=== PATIENT | male | born 1990 | race Caucasian/White ===

== ENCOUNTER 2023-12-11 18:46 | Emergency (ER) | payer OTHER, SELFPAY ==
[2023-12-11 18:52] VITALS: BP 120/88; BMI 25.9
[2023-12-11 20:14] LABS: % Basophils 0.3 % (0-2); % Eosinophils 1.8 % (0-6); % Immature Granulocytes 0.3 % (0-0.5); % Lymphocytes 26.2 % (20.5-51.1); % Monocytes 11.1 % (1.7-9.3); % Neutrophils 60.3 % (42.2-75.2); Absolute Eosinophils 0.1 10^3/uL (0-0.7); Absolute Lymphocytes 1.6 10^3/uL (1.2-3.4); Absolute Monocytes 0.7 10^3/uL (0.1-0.6); Absolute Neutrophils 3.7 10^3/uL (1.4-6.5); Hematocrit 40.9 % (39.0-52.0); Hemoglobin 14.7 g/dL (13.0-18.0); Mean Corp Hgb Conc. 35.9 g/dL (33.0-37.0); Mean Corpuscular Hgb 31.2 pg (27.0-31.0); Mean Corpuscular Volume 86.8 fL (80.0-94.0); Mean Platelet Volume 11.4 fL (7.4-10.4); Nucleated Red Blood Cells % 0 % (-); Platelet Count 133 10^3/uL (130-400); Red Blood Cell Count 4.71 10^6/uL (4.70-6.10); Red Cell Dist. Width 11.9 % (11.5-14.5); White Blood Cell Count 6.1 10^3/uL (4.8-10.8)
[2023-12-11 20:36] LABS: ALT (SGPT) 44 U/L (0-50); AST (SGOT) 40 U/L (17-59); Albumin 4.4 g/dl (3.5-5.0); Alkaline Phosphatase 83 U/L (38-126); Blood Urea Nitrogen 23 mg/dl (9-20); Calcium 8.9 mg/dl (8.4-10.2); Carbon Dioxide 25 mmol/L (22-30); Estimated Creatinine Clearance 101 ml/min; Glucose 80 mg/dl (70-99); Total Protein 7.2 g/dl (6.3-8.2); Troponin I < 0.012 ng/ml; eGFR > 60.00
[2023-12-11 20:44] LABS: Chloride 101 mmol/L (98-107); Potassium 4.1 mmol/L (3.5-5.1); Sodium 135 mmol/L (135-145)
--- NOTE | 2023-12-11 21:00 | ED.GENMED ---
History of Present Illness
<KAITLYNN Hancock - Last Filed: 12/12/23 01:06>
General
Chief Complaint: Chest Pain
Source: patient
Exam Limitations: none
Time Seen by Provider: 12/11/23 20:46
Travel History
Have you had any contact with someone who has COVID-19?: No
Do you have any symptoms of coronavirus? Fever > 100 degrees, chills, cough, shortness of breath, sore throat, loss of taste or smell, muscle aches, or headache?: No
History of Present Illness
History of Present Illness:
This is a 33 year old male that comes in with c/o chest pain. Sate that he was driving home when he got this extreme lightheadedness spell. Sates that he started to feel anxious and this would come and go. Then he started with chest pain and SOB.
States that he thought he better come and get checked. Denies any fever, chills, abd pain, nausea, vomiting, diarrhea, headache, urinary burning.
Past History
<KAITLYNN Hancock - Last Filed: 12/12/23 01:06>
Past History
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
ED Past Surgical History: Cardiac (Open heart surgery ) and Orthopedic (Clavicle fracture Left)
Social History
Tobacco: Non-smoker
Alcohol: Occasional
Drug: None
Personal:
Living: with family
Employment: Employed
Family History
Family History: Other (Noncontributory)
Review of Systems
<KAITLYNN Hancock - Last Filed: 12/12/23 01:06>
Review of Systems
All Other Systems: ROS reviewed and negative except as documented in HPI and ROS
Constitutional: Reports no symptoms; Denies fever or chills
EENT: Reports no symptoms
Respiratory: Reports trouble breathing; Denies cough
Cardiac: Reports chest pain
ABD/GI: Reports no symptoms; Denies abdominal pain, nausea, vomiting or diarrhea
: Reports no symptoms; Denies dysuria, frequency or urgency
Musculoskeletal: Reports no symptoms
Skin: Reports no symptoms
Neurological: Reports no symptoms; Denies dizzy or headache
Psychiatric: Reports no symptoms
Phy Exam
<KAITLYNN Hancock - Last Filed: 12/12/23 01:06>
General Physical Exam
General Presentation: well appearing and no apparent distress
General age: appears stated age
General Skin: warm and dry
General Habitus: normal
General Mental: alert
General Hydration: appears well hydrated
ENT Exam
ENT Exam: TM's normal, pharynx normal and neck supple
Eye Exam
Eye Exam: EOMI
Cardiovascular Exam
Cardiovascular Exam: regular rate/rhythm, no edema, normal peripheral pulses and other (Murmur)
Pulmonary Exam
Pulmonary Exam: lungs clear, no respiratory distress, no rales, chest non tender, no crackles, no rhonchi, no wheezing and no cough
Gastrointestinal Exam
Gastrointestinal Exam: normal bowel sounds, non tender, soft, no organomegaly, no pulsatile mass and non distended
Musculoskeletal Exam
Musculoskeletal Exam: full ROM and no edema
Skin Exam
Skin Exam: normal color, warm/dry, no rash and no petechia
Psychiatric Exam
Psychiatric Exam: normal mood/affect
Scores
<KAITLYNN Hancock - Last Filed: 12/12/23 01:06>
Heart Score for Chest Pain Patients
STEMI patient?: No
History: Slightly or Non-Suspicious
ECG: Normal (Same as prior ECG)
Age: </= 45 years
Risk Factors: >/= 3 Risk Factors or History of CAD
Troponin: </= Normal Limit
Heart Score for Chest Pain Patients: 2
Heart Score Risk: 2.5% MACE over next 6 weeks
Course
<KAITLYNN Hancock - Last Filed: 12/12/23 01:06>
Orders/Labs/Results
Orders:
Orders
12/11/23 18:48
Electrocardiogram (*1) Urgent
Reason for Study: Chest Pain
EKG- Treatment ONCE
12/11/23 20:07
Complete Blood Count/With Diff Urgent
Comprehensive Metabolic Panel Urgent
Troponin I Urgent
12/11/23 20:59
EKG- Treatment ONCE
12/11/23 21:19
CR Chest - 2 Views Urgent
Comment:
Reason For Exam: Chest
12/11/23 23:59
Electrocardiogram (*1) Urgent
Reason for Study: Chest Pain
Other Reason for Exam: Repeat with Troponin
Troponin I Urgent
Abnormal Lab Results
12/11/23
20:07
MCH 31.2 H pg
(27.0-31.0)
MPV 11.4 H fL
(7.4-10.4)
Absolute Monos (auto) 0.7 H 10^3/uL
(0.1-0.6)
Monocytes % 11.1 H %
(1.7-9.3)
BUN 23 H mg/dl
(9-20)
12/11/23 20:07
12/11/23 20:07
Dehydration. Troponin <0.012
Vital Signs
Initial and Last Documented VS:
Initial Vital Signs
Temp Pulse Resp BP Pulse Ox
98.2 F 75 16 120/88 94
12/11/23 18:52 12/11/23 18:52 12/11/23 18:52 12/11/23 18:52 12/11/23 18:52
Last Documented Vital Signs
Temp Pulse Resp BP Pulse Ox
98.2 F 75 16 120/88 94
12/11/23 18:52 12/11/23 18:52 12/11/23 18:52 12/11/23 18:52 12/11/23 18:52
<Mike H. DO Roge - Last Filed: 12/11/23 21:32>
Orders/Labs/Results
Orders:
Orders
12/11/23 18:48
Electrocardiogram (*1) Urgent
Reason for Study: Chest Pain
EKG- Treatment ONCE
12/11/23 20:07
Complete Blood Count/With Diff Urgent
Comprehensive Metabolic Panel Urgent
Troponin I Urgent
12/11/23 20:59
EKG- Treatment ONCE
12/11/23 21:19
CR Chest - 2 Views Urgent
Comment:
Reason For Exam: Chest
12/11/23 23:59
Electrocardiogram (*1) Urgent
Reason for Study: Chest Pain
Other Reason for Exam: Repeat with Troponin
Troponin I Urgent
Abnormal Lab Results
12/11/23
20:07
MCH 31.2 H pg
(27.0-31.0)
MPV 11.4 H fL
(7.4-10.4)
Absolute Monos (auto) 0.7 H 10^3/uL
(0.1-0.6)
Monocytes % 11.1 H %
(1.7-9.3)
BUN 23 H mg/dl
(9-20)
12/11/23 20:07
12/11/23 20:07
Vital Signs
Initial and Last Documented VS:
Initial Vital Signs
Temp Pulse Resp BP Pulse Ox
98.2 F 75 16 120/88 94
12/11/23 18:52 12/11/23 18:52 12/11/23 18:52 12/11/23 18:52 12/11/23 18:52
Last Documented Vital Signs
Temp Pulse Resp BP Pulse Ox
98.2 F 75 16 120/88 94
12/11/23 18:52 12/11/23 18:52 12/11/23 18:52 12/11/23 18:52 12/11/23 18:52
<KAITLYNN Hancock - Last Filed: 12/12/23 01:06>
MDM/Problems Addressed
Differential Diagnosis Includes:
Anxiety, coronary Disease
MDM/Problems Addressed:
This is a 33 year old male that comes in with c/o lightheadedness and then he started with chest pain and SOB. States that he felt that this may be anxiety but denies any history. States that he felt he better come and get checked out.
Will check labs. Chest x-ray
Chronic conditions affecting care: CAD and Other
Acute Exacerbation and/or Progression of Chronic Illness:
NA
<KAITLYNN Hancock - Last Filed: 12/12/23 01:06>
*Radiology
Radiology exam reviewed: radiology read reviewed (Chest- No radiographic evidence for acute pulmonary edema, Pneumonia , or Pleural effusion. 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
Previous ORIF of a left midclavicular fracture. )
*Pulse Oximetry
Patient hypoxic: no
*EKG
Interpreted by ED Provider?: Yes
Heart Rate: 64
Rate: normal
Rhythm: sinus
Midway: right axis deviation
Interval: normal interval
QRS Pattern: normal QRS
Ischemia: T-wave inversion (I, aVL, V1, V2, V3, V4, V5, Appears same as prior ECG. )
*Critical Care Note
Total Time (30-74mins, 75-104mins- exclusive of procedures): Not Applicable
ED Attending Note
<KAITLYNN Hancock - Last Filed: 12/12/23 01:06>
-
Portions of this chart may have been created with voice recognition software.� Occasional wrong word or��sound alike� substitutions may have occurred due to the inherent limitations of voice recognition software.
<Mike Guan DO - Last Filed: 12/11/23 21:32>
ED Attending Note
Patient seen and examined by attending physician: Yes
I performed the substantive portion of visit, reviewed & personally made and approve the management plan that is documented in note by myself or KIMMY.: Yes
ED Attending Note:
Agree with Perla's note.
Pt had episode of chest discomfort, dizziness which occurred while driving. Pt feels well now. Hx of hypoplastic left heart with surgery x 3. 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
General: Awake, Alert, Oriented X3. No acute distress.
Vitals: unremarkable
Head: Atraumatic
Eyes: Pupils equal, EOMI
Throat: Airway intact, no exudates
Neck: Trachea midline
Lungs: Clear and equal b/l
Heart: Regular rate, 2/6 murmurs
Abd: Soft, Nontender, No pulsatile mass
Neuro: Nonfocal
Skin: Warm, dry, no rash
Extremities: pulses equal b/l, no edema
EKG: NSR, t wave inversion inf/lat lead which were present on EKG of 2021.
? svt vs anxiety. IF trop normal x 2 pt can be discharged but recommend calling cardiology @ [place] for appointment. Murmur has been previously documented.
Discharge Plan
Departure
Condition: Good
Covid-19: Not Applicable
Discharge Problem:
Chest pain, Anxiety
Instructions: Anxiety, Adult (DC), Chest Pain NON-[facility] Power Transformer Inspector Follow Up, Chest Pain PCP Follow Up
Prescriptions:
No Action
No Current Medications
0
Referrals:
Mike Kilpatrick DO [Family Provider] - Follow up in 2-3 days
Activity Restrictions/Additional Instructions:
As discussed, your blood work shows some dehydration. Please increase your water intake to 8-8oz glasses daily. Your Chest x-ray is normal along with both Troponin. This may have been all related to anxiety. Please follow up with the family doctor
and your Power Transformer Inspector for further evaluation. IF YOU HAVE INCREASED OR CHANGING CHEST PAIN, OR YOU HAVE ANY OTHER CONCERNS PLEASE RETURN TO THE EMERGENCY ROOM.
Interventions
Interventions:
*Risk Screen - Suicide Last Done: 12/11/23 18:52
*Neglect/Abuse Screening Last Done: 12/11/23 18:52
ED- Fall Risk Assessment Last Done: 12/11/23 18:52
*ED COVID-19 Vaccine History Last Done: 12/11/23 18:52
ED- Cardiac Assessment Last Done: 12/11/23 21:11
[2023-12-12 00:54] LABS: Troponin I < 0.012 ng/ml
[2023-12-12 00:57] VITALS: BP 109/66
== END 2023-12-12 01:06 | disposition home or self-care (01) ==
LOC: EMR 18:46
PROVIDERS: Clinical Nurse Specialist Family Health; EMERGENCY PHYSICIAN Emergency Medicine; FAMILY PHYSICIAN Family Medicine
DX: R07.89 Other chest pain (principal); E86.0 Dehydration; F41.9 Anxiety disorder, unspecified; I25.10 Atherosclerotic heart disease of native coronary artery without angina pectoris
CPT/HCPCS: 99283; 71046; 80053; 84484; 85025; 93005